=== PATIENT | female | born 1965 | race Caucasian/White ===

== ENCOUNTER 2022-05-15 17:06 | Emergency (ER) | payer BC, SELFPAY ==
--- NOTE | 2022-05-15 17:09 | ED.URI ---
HPI - URI/Sore Throat General Chief Complaint: Upper Respiratory Infection Stated Complaint: cough/chest congestion Time Seen by Provider: 05/15/22 17:09 Source: patient and RN notes reviewed History of Present Illness HPI Narrative: Patient is a 56-year-old female who presents to urgent care with complaints of chest congestion and cough. Patient states that it started 2 weeks ago and she has been using Mucinex. Patient also reports of some discomfort to the left ear. Denies any fever, nausea, vomiting or upper respiratory complaints. No other acute complaints. No acute distress noted. Patient aware of the plan of care. Some parts of this dictation were generated by voice recognition software and may contain typographical and/or grammatical inaccuracies. Related Data Home Medications Medication Instructions Recorded Confirmed dulaglutide 0.75 mg/0.5 mL 0.75 mg subcut WEEKLY 05/15/22 05/15/22 subcutaneous pen injector (Trulicity) glipizide 10 mg tablet 20 mg PO DAILY 05/15/22 05/15/22 insulin glargine U-300 conc 300 300 unit subcut DAILY 05/15/22 05/15/22 unit/mL (1.5 mL) subcutaneous pen (Toujeo SoloStar U-300 Insulin) lisinopril 5 mg tablet 5 mg PO DAILY 05/15/22 05/15/22 lovastatin 20 mg tablet 20 mg PO DAILY 05/15/22 05/15/22 metformin 1,000 mg tablet 1,000 mg PO DAILY 05/15/22 05/15/22 Allergies Allergy/AdvReac Type Severity Reaction Status Date / Time No Known Allergies Allergy Verified 05/15/22 17:26 Review of Systems Review of Systems: CONSTITUTIONAL: Denies fever, chills, or sweats. EYES: Denies visual changes, redness, or discharge. ENT: Denies rhinorrhea, congestion, sore throat, or otalgia. Reports postnasal drainage CARDIOVASCULAR: Denies chest pain, palpitations, or edema. RESPIRATORY: Reports of cough and chest congestion GASTROINTESTINAL: Denies abdominal pain, nausea, vomiting, or diarrhea. GENITOURINARY: Denies dysuria or hematuria. SKIN: Denies rash or itching. MUSCULOSKELETAL: Denies back pain, joint pain, or myalgia. NEUROLOGIC: Denies headache, numbness, or weakness. All other systems reviewed are negative, except as documented in HPI. PMFSH Comments At the time of my signature, I reviewed and agree with the nursing past medical, surgical, social, and family history. There is no relevant family history pertinent to the patient complaint. Exam Narrative: GENERAL: This is a well-nourished, well-developed patient, in no apparent distress. HEAD: normocephalic, atraumatic. EYES: PERRL. Sclera clear/white. Vision is grossly intact. EARS: External ears normal, auditory canals clear and without drainage, mild bilateral eustachian tube dysfunction. TMs normal without perforation. Hearing grossly intact. NOSE: External nose normal with no obvious nasal discharge, nares without redness, no rhinorrhea. THROAT: Mucous membranes moist, posterior pharynx clear. Moderate postnasal drainage NECK: Neck supple, non-tender without lymphadenopathy CARDIOVASCULAR: Regular rate and rhythm without murmurs, gallops, or rubs. RESPIRATORY: Clear to auscultation. Breath sounds equal bilaterally. No wheezes, rales, or rhonchi. SKIN: warm, intact with no suspicious lesions or rash, good texture and turgor. NEURO: awake, alert, and oriented to person, place and time. There were no obvious focal neurologic abnormalities. EXTREMITIES: No clubbing, cyanosis, or edema. Course Course Level of Care: Express Care Visit Vital Signs Vital signs: Vital Signs Temperature 98.6 F 05/15/22 17:12 Pulse Rate 93 05/15/22 17:12 Respiratory Rate 20 05/15/22 17:12 Blood Pressure 138/67 05/15/22 17:12 Pulse Oximetry 96 05/15/22 17:12 Oxygen Delivery Room Air 05/15/22 17:12 Temperature 98.6 F 05/15/22 17:12 Pulse Rate 93 05/15/22 17:12 Respiratory Rate 20 05/15/22 17:12 Blood Pressure 138/67 05/15/22 17:12 Pulse Oximetry 96 05/15/22 17:12 Oxygen Delivery Room Air 05/15/22 17:1
[2022-05-15 17:12] VITALS: BP 138/67; PULSE 93; RESP 20; TEMP 37; O2SAT 96
== END 2022-05-15 17:38 | disposition home or self-care (01) ==
PROVIDERS: Emergency Provider Nurse Practitioner Family; PCP Family Medicine
DX: J40 Bronchitis, not specified as acute or chronic (principal); Z79.4 Long term (current) use of insulin
CPT/HCPCS: 99213; G0463

== ENCOUNTER 2023-04-18 09:10 | Emergency (ER) | payer BC, SELFPAY ==
[2023-04-18 09:20] VITALS: BP 124/58; PULSE 102; RESP 16; TEMP 37.4; O2SAT 96
--- NOTE | 2023-04-18 10:25 | ED.URI ---
HPI - URI/Sore Throat General Chief Complaint: Upper Respiratory Infection Stated Complaint: chest/cough History of Present Illness HPI Narrative: pt is a 57 y/o female, presents to with 3 day hx of nasal congestion, dry cough, sore scratchy throat, bodyaches and malaise. she denies known fevers but has felt chilled, primarily at night. she is taking Mucinex during the day and Robitussin DM at HS. She has not taken any medication today. She denies any additional associated symptoms or modifying factors. Related Data Home Medications Medication Instructions Recorded Confirmed dulaglutide 0.75 mg/0.5 mL 0.75 mg subcut WEEKLY 05/15/22 05/15/22 subcutaneous pen injector (Trulicity) glipizide 10 mg tablet 20 mg PO DAILY 05/15/22 05/15/22 insulin glargine U-300 conc 300 300 unit subcut DAILY 05/15/22 05/15/22 unit/mL (1.5 mL) subcutaneous pen (Toujeo SoloStar U-300 Insulin) lisinopril 5 mg tablet 5 mg PO DAILY 05/15/22 05/15/22 lovastatin 20 mg tablet 20 mg PO DAILY 05/15/22 05/15/22 metformin 1,000 mg tablet 1,000 mg PO DAILY 05/15/22 05/15/22 Allergies Allergy/AdvReac Type Severity Reaction Status Date / Time No Known Allergies Allergy Verified 05/15/22 17:26 Review of Systems Constitutional: Comments: refer to HPI ENT: Comments: refer to HPI Respiratory: Comments: refer to HPI Exam Const: General: healthy appearing, no acute distress and alert Nutritional Appearance: well nourished Orientation/consciousness: patient oriented x3 Limitations: no limitations Other: pt sounds nasally congested when speaking, she does not appear toxically ill HENMT: Head: normal to inspection Ears: external ears normal and TM abnormal (TMs are retracted bilaterally with mild serous pattern, no erythema) Face/Nose/Sinus: Normal external nose present and Normal nares present Face and sinus: normal facial exam and sinuses nontender Mouth: Yes Normal oral and palatal mucosa present, Yes lip normal and Yes moist mucous membranes Other: pharyngeal injection with cobble stone appearance noted, no exudate, no trismus Eyes: Conjunctivae: conjunctivae normal Neck: Neck: normal visual inspection, no lymphadenopathy and no meningeal signs Resp: Effort & Inspection: normal respiratory effort Auscultation: clear to auscultation bilaterally Other: spasmodic cough noted during auscultation Cardio: Rate: regular rate Rhythm: regular rhythm Skin: General skin exam: normal color Rashes: no rashes Wounds: no wounds Neuro: General: patient oriented x3, moves all extremities, no meningeal signs, no focal motor deficits and CN's II-XI intact bilaterally Speech: normal speech Gait exam (Neuro): Normal gait present Extrem: General: normal to inspection and no clubbing, cyanosis or edema Course Course Emergency Course: suspect viral URI, possibly influenza however, she is not in the window of efficacy for Tamiflu at day ~3-4, she therefore declines screening. Plan to treat with short steroid course, stop Mucinex for dry cough as this will only increase coughing, She requests tessalon Perles as these work well for her cough. APAP for fevers. FU with PCP in 5 days if symptoms are not resolving. Pt is agreeable with plan. Level of Care: Express Care Visit ([id number]) Vital Signs Vital signs: Vital Signs Temperature 37.4 C 04/18/23 09:20 Pulse Rate 102 H 04/18/23 09:20 Respiratory Rate 16 04/18/23 09:20 Blood Pressure 124/58 L 04/18/23 09:20 Pulse Oximetry 96 04/18/23 09:20 Oxygen Delivery Room Air 04/18/23 09:20 Temperature 37.4 C 04/18/23 09:20 Pulse Rate 102 H 04/18/23 09:20 Respiratory Rate 16 04/18/23 09:20 Blood Pressure 124/58 L 04/18/23 09:20 Pulse Oximetry 96 04/18/23 09:20 Oxygen Delivery Room Air 04/18/23 09:20 MDM - URI/Sore Throat MDM Narrative Medical decision making narrative: will treat with short steroid course, inhaler she has
== END 2023-04-18 10:38 | disposition home or self-care (01) ==
PROVIDERS: Emergency Provider Nurse Practitioner Family; PCP Family Medicine
DX: J06.9 Acute upper respiratory infection, unspecified (principal)
CPT/HCPCS: 99213; G0463